=== PATIENT | female | born 1990 | race Caucasian/White ===

== ENCOUNTER 2017-04-02 20:12 | Emergency (ER) | payer MEDICAID, OTHER ==
[~2017-04-02] VITALS: Ht 152.4 cm; Wt 64.0 kg
[2017-04-02 23:00] VITALS: BP 111/64
== END 2017-04-02 23:18 | disposition home or self-care (01) ==
LOC: ER 21:26
DX: L03.311 Cellulitis of abdominal wall (principal); T63.301A Toxic effect of unspecified spider venom, accidental (unintentional), initial encounter
CPT/HCPCS: 99283

== ENCOUNTER 2020-10-14 15:17 | Emergency (ER) | payer SELFPAY ==
[~2020-10-14] VITALS: Ht 154.9 cm; Wt 62.0 kg
[2020-10-14 16:11] LABS: BASOPHILS % 0.7 % (0.0-2.0); EOSINOPHILS % 6.4 % (0.0-5.0); HEMATOCRIT. 36.4 % (36.0-48.0); HEMOGLOBIN. 12.9 g/dL (12.0-16.0); LYMPHOCYTES % 26.9 % (20.0-50.0); MEAN CORPUSCULAR HEMOGLOBIN 32.5 pg (28.0-32.0); MEAN CORPUSCULAR VOLUME 91.9 fL (81.0-99.0); MEAN PLATELET VOLUME 9.7 fl (7.4-10.4); MONOCYTES % 9.9 % (2.0-8.0); NEUTROPHILS % 56.1 % (40.0-76.0); PLATELET 154 x1000/uL (130-400); RED BLOOD CELL COUNT 3.97 mill/uL (4.2-5.4); RED CELL DISTRIBUTION WIDTH 12.8 % (11.6-14.6)
[2020-10-14 16:16] LABS: CLARITY URINE CLOUDY (CLEAR); COLOR URINE YELLOW (YELLOW); KETONES URINE NEGATIVE (NEGATIVE); LEUKOCYTE ESTERASE URINE 2+ (NEGATIVE); NITRITE URINE NEGATIVE (NEGATIVE); OCCULT BLOOD URINE NEGATIVE (NEGATIVE); PH URINE 6.5 (4.5-8.0); PROTEIN URINE NEGATIVE (NEGATIVE); SPECIFIC GRAVITY URINE 1.011 (1.005-1.030); UROBILINOGEN URINE 0.2 E.U./dL (0.2-1.0)
[2020-10-14 16:18] LABS: CHLORIDE 106 mEq/L (98-107)
[2020-10-14 16:20] LABS: PROTHROMBIN TIME 10.6 sec (9.6-11.0)
[2020-10-14] MEDS ORDERED: IBUP-2029 MT (17:49)
[2020-10-14] MEDS ORDERED: CEPH500C2 MT (17:49)
[2020-10-14 18:05] VITALS: BP 104/76
== END 2020-10-14 18:10 | disposition home or self-care (01) ==
LOC: ER 15:17
DX: N30.90 Cystitis, unspecified without hematuria (principal)
CPT/HCPCS: 36415; 76856; 80053; 81003; 81025; 85025; 99285

== ENCOUNTER 2020-10-25 18:50 | Emergency (ER) | payer SELFPAY ==
[~2020-10-25] VITALS: Ht 157.5 cm; Wt 61.0 kg
[~2020-10-25 18:50] MED LIST: CEPH500C2 MT; IBUP-2029 MT
[2020-10-25 18:58] VITALS: BP 123/73
== END 2020-10-25 20:01 | disposition home or self-care (01) ==
LOC: ER 18:50
DX: N39.0 Urinary tract infection, site not specified (principal)
CPT/HCPCS: 99281

== ENCOUNTER 2021-09-07 20:08 | Emergency (ER) | payer MEDICAID ==
[~2021-09-07] VITALS: Ht 157.5 cm; Wt 61.0 kg
[2021-09-07] MEDS ORDERED: TETANUS, DIPHTHERIA, PERTUSSIS VAC/PF 0.5ML (>10YR OLD) IM ONE (22:45)
[2021-09-07] MEDS ORDERED: ACETAMINOPHEN 325MG TABLET PO ONE (22:45)
[2021-09-07] MEDS ORDERED: LIDOCAINE HCL 1% 20ML VIAL (Pyxis) INJ INFIL ONE (22:45)
[2021-09-08] MEDS ORDERED: LIDOCAINE HCL 1% 10 MG/ML 10ML VIAL IJ SCH (00:45)
[2021-09-08 01:39] VITALS: BP 121/77
== END 2021-09-08 02:48 | disposition home or self-care (01) ==
LOC: ER 20:08
DX: S69.81XA Other specified injuries of right wrist, hand and finger(s), initial encounter (principal); X58.XXXA Exposure to other specified factors, initial encounter; Y93.89 Activity, other specified; Y92.89 Other specified places as the place of occurrence of the external cause
CPT/HCPCS: 11730; 73130; 90471; 90715; 99284; J3490; Z7610